=== PATIENT | male | born 1955 | race Two or more races ===

== ENCOUNTER 2022-12-26 13:25 | Emergency (ER) | payer MEDICAID, OTHER ==
[~2022-12-26] VITALS: Ht 177.8 cm; Wt 75.0 kg
[2022-12-26 13:32] VITALS: BP 148/80
[2022-12-26] MEDS ORDERED: ACETAMINOPHEN 325MG TABLET PO ONE (14:30)
[2022-12-26] MEDS ORDERED: IBUP-2029 MT (15:54)
== END 2022-12-26 17:31 | disposition home or self-care (01) ==
LOC: ER 13:25
DX: S16.1XXA Strain of muscle, fascia and tendon at neck level, initial encounter (principal); I10 Essential (primary) hypertension; E78.00 Pure hypercholesterolemia, unspecified; V49.9XXA Car occupant (driver) (passenger) injured in unspecified traffic accident, initial encounter; Y93.89 Activity, other specified; Y92.89 Other specified places as the place of occurrence of the external cause; Y99.8 Other external cause status
CPT/HCPCS: 99284